=== PATIENT | female | born 1975 | race Caucasian/White ===

== ENCOUNTER → 2017-04-01 | Outpatient (CLI) | payer OTHER ==
--- NOTE | ~2017-04-01 | US128 ---
[id number] [address] [address] [id number] O MR#: [id number] #: [id number] NAME: KAYLEY GRYA : 1975 SEX: F STUDY DATE/TIME: 04/01/2017 8:56 UNIT: [facility] ROOM: STUDY DESCRIPTION: Thyroid Attending Physician: Julia Rodriguez M.D. Referring Physician: Julia Rodriguez M.D. Ordering Physician: Julia Rodriguez M.D. Primary Care Physician: Julia Rodriguez M.D. MEDICAL IMAGING REPORT This report is preliminary unless electronic signature is present. EXAM Thyroid ultrasound Date of study: 04/01/2017 HISTORY Followup thyroid nodules. FINDINGS In the right lobe of the gland there is a cystic appearing hypoechoic 7 x 10 x 11 mm nodule and small sub-centimeter solid nodule. In the left lobe of the gland, there is a tiny lower pole sub-centimeter nodule. The hypoechoic right lobe lesion is slightly larger than at the time of the prior study, currently measuring about 7 x 10 x 11 mm compared to about 7 x 8 x 8 mm. There is also an older ultrasound exam from October 06, 2015. On that exam, the lesion was measured about 6 x 7 x 5 mm. Overall, the findings would suggest slow progressive interval growth. IMPRESSION Tiny sub-centimeter lesions of doubtful significance. There is a hypoechoic possibly cystic right lobe lesion currently measuring 10 x 11 x 7 mm, with prior exams from May 07, 2016, measuring about 8 x 8 x 7 mm, and October 06, 2015 measuring about 6 x 7 x 5 mm. It has shown slow interval growth. It would be easily amendable to ultrasound-guided needle aspiration. No other nodules are seen. Dictated by... Edgar Wheat M.D. THIS IS AN ELECTRONICALLY VERIFIED REPORT Edgar Wheat M.D. at 04/02/2017 3:59 PM MELISSA/archie TD: 04/02/2017 03:44 JOB #: [id number] MEDICAL IMAGING REPORT Page 1 of 1
== END | disposition home or self-care (01) ==
LOC: SGUS 08:30
DX: E04.2 Nontoxic multinodular goiter (principal); R93.8 Abnormal findings on diagnostic imaging of other specified body structures
CPT/HCPCS: 76536